=== PATIENT | male | born 1955 | race Caucasian/White ===

== ENCOUNTER 2016-06-25 12:19 | Emergency (ER) | payer MEDICARE, MEDICAID ==
[~2016-06-25 12:19] MED LIST: ATIVAN0.5 MG PO; AUGMENTIN 875-1 EACH PO; BACTRIM DS 8001 TAB PO; CEPHALEXIN500 M1 PO; CLONAZEPAM0.5 MG PO; NO HOME MEDICATIONS; NORCO 325 MG-51 TA1 PO; NORCO 325 MG-51 TAB PO; VIBRAMYCIN100 MG PO; ZOFRAN4 M1 PO
[2016-06-25] MEDS ORDERED: VIBRAMYCIN HYC100 MG PO (12:53)
[2016-06-25 13:04] VITALS: BP 145/88
== END 2016-06-25 13:00 | disposition home or self-care (01) ==
LOC: ED 12:19
DX: J02.9 Acute pharyngitis, unspecified (principal); R59.1 Generalized enlarged lymph nodes; R53.81 Other malaise; R53.83 Other fatigue; F15.21 Other stimulant dependence, in remission; F17.210 Nicotine dependence, cigarettes, uncomplicated

== ENCOUNTER 2017-03-19 13:47 | Emergency (ER) | payer MEDICARE, MEDICAID ==
[~2017-03-19] VITALS: Ht 180.3 cm; Wt 89.1 kg
[~2017-03-19 13:47] MED LIST changes: +VIBRAMYCIN HYC100 MG PO
[2017-03-19 13:52] VITALS: BP 131/85
[2017-03-19] MEDS ORDERED: DULCOLAX5 M1 PO (15:36)
[2017-03-19] MEDS ORDERED: COMBIVENT RESPI1 SPR IH (15:36)
[2017-03-19] MEDS ORDERED: MIRALAX 255 GM255 GM PO (15:36)
[2017-03-19] MEDS ORDERED: PREDNISONE20 M1 PO (15:36)
== END 2017-03-19 15:45 | disposition home or self-care (01) ==
LOC: ED 13:47
DX: J44.1 Chronic obstructive pulmonary disease with (acute) exacerbation (principal); K59.00 Constipation, unspecified
CPT/HCPCS: J7512

== ENCOUNTER 2018-06-11 15:09 | Emergency (ER) | payer MEDICARE, MEDICAID ==
[~2018-06-11] VITALS: Ht 182.9 cm; Wt 81.8 kg
[~2018-06-11 15:09] MED LIST changes: +COMBIVENT RESPI1 SPR IH; +DULCOLAX5 M1 PO; +MIRALAX 255 GM255 GM PO; +PREDNISONE20 M1 PO
[2018-06-11 15:13] VITALS: BP 148/87
[2018-06-11 16:10] LABS: HEMATOCRIT 41.2 % (42.0-52.0); MEAN CELL VOLUME 92 fl (78-100); MEAN CORPUSCULAR HEMOGLOBIN 29 pg (27-31); MEAN CORPUSCULAR HGB CONC 32 g/dL (33-37); PLATELET COUNT 222 K/mm3 (130-400); RED BLOOD COUNT 4.49 M/mm3 (4.20-5.60); RED CELL DISTRIBUTION WIDTH 13.1 % (11.5-14.5)
[2018-06-11 16:22] LABS: WHITE BLOOD COUNT 20.6 K/mm3 (4.8-10.8)
[2018-06-11 16:28] LABS: CALCIUM 8.6 mg/dL (8.4-10.2); POTASSIUM 4.2 mmol/L (3.6-5.0); TOTAL BILIRUBIN 0.4 mg/dL (0.2-1.3); TOTAL PROTEIN 6.9 g/dL (6.3-8.2)
[2018-06-11 16:32] LABS: URINE APPEARANCE CLEAR; URINE BILIRUBIN NEGATIVE (NEGATIVE); URINE BLOOD NEGATIVE (NEGATIVE); URINE COLOR YELLOW; URINE GLUCOSE NEGATIVE (NEGATIVE); URINE KETONE NEGATIVE (NEGATIVE); URINE LEUKOCYTE ESTERASE NEGATIVE (NEGATIVE); URINE NITRATE NEGATIVE (NEGATIVE); URINE PROTEIN(semi-quant) NEGATIVE (NEGATIVE); URINE UROBILINOGEN NORMAL (NORMAL); URINE WBC 0-1 /hpf (0-3)
[2018-06-11 16:57] LABS: LYMPHOCYTE 82 % (20-51); MONOCYTE 5 % (3-10); NEUTROPHILS 12 % (42-75)
[2018-06-11] MEDS ORDERED: TRAMADOL 50 MG TAB PO (17:18)
== END 2018-06-11 17:26 | disposition home or self-care (01) ==
LOC: ED 15:09
PROVIDERS: Family Medicine
DX: R33.9 Retention of urine, unspecified (principal); G89.29 Other chronic pain; K21.9 Gastro-esophageal reflux disease without esophagitis; Z98.890 Other specified postprocedural states; Z86.59 Personal history of other mental and behavioral disorders

== ENCOUNTER 2018-07-06 19:07 | Emergency (ER) | payer MEDICARE, MEDICAID ==
[~2018-07-06] VITALS: Ht 180.3 cm; Wt 79.5 kg
[~2018-07-06 19:07] MED LIST changes: +TRAMADOL 50 MG TAB PO
[2018-07-06 20:14] LABS: HEMATOCRIT 30.5 % (42.0-52.0); HEMOGLOBIN 9.5 g/dL (13.5-18.0); MEAN CELL VOLUME 92 fl (78-100); MEAN CORPUSCULAR HEMOGLOBIN 29 pg (27-31); MEAN CORPUSCULAR HGB CONC 31 g/dL (33-37); MEAN PLATELET VOLUME 9.2 fl (7.4-10.4); RED CELL DISTRIBUTION WIDTH 13.9 % (11.5-14.5)
[2018-07-06 20:20] LABS: PLATELET COUNT 549 K/mm3 (130-400); WHITE BLOOD COUNT 23.8 K/mm3 (4.8-10.8)
[2018-07-06 20:28] LABS: CALCIUM 7.7 mg/dL (8.4-10.2); POTASSIUM 3.8 mmol/L (3.6-5.0); TOTAL BILIRUBIN 0.3 mg/dL (0.2-1.3); TOTAL PROTEIN 6.6 g/dL (6.3-8.2)
[2018-07-06 20:40] LABS: NEUTROPHILS 29 % (42-75)
[2018-07-06 20:41] LABS: LYMPHOCYTE 66 % (20-51); MONOCYTE 5 % (3-10); OVALOCYTES 1+
[2018-07-06 21:15] LABS: URINE APPEARANCE CLEAR; URINE COLOR YELLOW
[2018-07-06 21:16] LABS: PH-URINE 5.5 (5.0 - 8.0); URINE BILIRUBIN NEGATIVE (NEGATIVE); URINE BLOOD NEGATIVE (NEGATIVE); URINE GLUCOSE NEGATIVE (NEGATIVE); URINE KETONE NEGATIVE (NEGATIVE); URINE LEUKOCYTE ESTERASE NEGATIVE (NEGATIVE); URINE NITRATE NEGATIVE (NEGATIVE); URINE PROTEIN(semi-quant) NEGATIVE (NEGATIVE); URINE UROBILINOGEN NORMAL (NORMAL); URINE WBC 0-1 /hpf (0-3)
[2018-07-06 21:49] VITALS: BP 144/87
[2018-07-06] MEDS ORDERED: FLOMAX0.4 MG PO (23:23)
== END 2018-07-06 21:49 | disposition other institution (70) ==
LOC: ED 19:07
PROVIDERS: Nurse Practitioner
DX: J18.9 Pneumonia, unspecified organism (principal); S02.92XA Unspecified fracture of facial bones, initial encounter for closed fracture; R33.9 Retention of urine, unspecified; K21.9 Gastro-esophageal reflux disease without esophagitis; K29.70 Gastritis, unspecified, without bleeding; F19.10 Other psychoactive substance abuse, uncomplicated; Z98.890 Other specified postprocedural states; W18.30XA Fall on same level, unspecified, initial encounter
CPT/HCPCS: J7030

== ENCOUNTER 2018-07-06 21:49 | Inpatient (IN) | payer MEDICARE, MEDICAID ==
[~2018-07-06] VITALS: Ht 180.3 cm; Wt 79.4 kg
[2018-07-06 22:45] VITALS: BP 144/87
[2018-07-06 22:46] VITALS: BP 144/87
[2018-07-06] MEDS ORDERED: FLOMAX0.4 MG PO (23:23)
[2018-07-07] VITALS (7 sets, daily range): BP systolic 81–123; BP diastolic 49–72
[2018-07-07 06:41] LABS: HEMOGLOBIN 9.5 g/dL (13.5-18.0); MEAN CELL VOLUME 92 fl (78-100); MEAN CORPUSCULAR HEMOGLOBIN 29 pg (27-31); MEAN CORPUSCULAR HGB CONC 32 g/dL (33-37); MEAN PLATELET VOLUME 9.3 fl (7.4-10.4); RED BLOOD COUNT 3.28 M/mm3 (4.20-5.60); RED CELL DISTRIBUTION WIDTH 13.8 % (11.5-14.5)
[2018-07-07 06:47] LABS: CALCIUM 7.7 mg/dL (8.4-10.2); POTASSIUM 4.4 mmol/L (3.6-5.0)
[2018-07-07 07:07] LABS: LYMPHOCYTE 58 % (20-51); NEUTROPHILS 42 % (42-75); PLATELET COUNT 563 K/mm3 (130-400); WHITE BLOOD COUNT 21.9 K/mm3 (4.8-10.8)
[2018-07-08 02:41] VITALS: BP 121/69
[2018-07-08 06:34] VITALS: BP 127/64
[2018-07-08 08:37] LABS: CALCIUM 7.8 mg/dL (8.4-10.2); POTASSIUM 3.9 mmol/L (3.6-5.0)
[2018-07-08 08:38] LABS: HEMATOCRIT 27.1 % (42.0-52.0); HEMOGLOBIN 8.3 g/dL (13.5-18.0); MEAN CELL VOLUME 93 fl (78-100); MEAN CORPUSCULAR HEMOGLOBIN 28 pg (27-31); MEAN CORPUSCULAR HGB CONC 31 g/dL (33-37); MEAN PLATELET VOLUME 9.5 fl (7.4-10.4); RED BLOOD COUNT 2.93 M/mm3 (4.20-5.60); RED CELL DISTRIBUTION WIDTH 14.2 % (11.5-14.5)
[2018-07-08 10:24] LABS: PLATELET COUNT 556 K/mm3 (130-400); WHITE BLOOD COUNT 22.5 K/mm3 (4.8-10.8)
[2018-07-08 10:25] LABS: LYMPHOCYTE 48 % (20-51); MONOCYTE 5 % (3-10); NEUTROPHILS 46 % (42-75)
[2018-07-08 11:36] VITALS: BP 135/77
[2018-07-08 14:32] VITALS: BP 149/76
[2018-07-08 15:23] LABS: URINE APPEARANCE CLEAR; URINE BILIRUBIN NEGATIVE (NEGATIVE); URINE BLOOD NEGATIVE (NEGATIVE); URINE COLOR YELLOW; URINE GLUCOSE NEGATIVE (NEGATIVE); URINE KETONE NEGATIVE (NEGATIVE); URINE LEUKOCYTE ESTERASE NEGATIVE (NEGATIVE); URINE NITRATE NEGATIVE (NEGATIVE); URINE PROTEIN(semi-quant) TRACE mg/dL (NEGATIVE); URINE UROBILINOGEN NORMAL (NORMAL)
[2018-07-08 19:15] VITALS: BP 129/75
[2018-07-08 23:11] VITALS: BP 121/69
[2018-07-09 03:13] VITALS: BP 147/88
[2018-07-09 06:34] VITALS: BP 157/88
[2018-07-09 08:15] LABS: HEMATOCRIT 26.8 % (42.0-52.0); HEMOGLOBIN 8.2 g/dL (13.5-18.0); MEAN CELL VOLUME 93 fl (78-100); MEAN CORPUSCULAR HEMOGLOBIN 29 pg (27-31); MEAN CORPUSCULAR HGB CONC 31 g/dL (33-37); MEAN PLATELET VOLUME 9.1 fl (7.4-10.4); RED BLOOD COUNT 2.87 M/mm3 (4.20-5.60); RED CELL DISTRIBUTION WIDTH 14.4 % (11.5-14.5); WHITE BLOOD COUNT 17.6 K/mm3 (4.8-10.8)
[2018-07-09 08:20] LABS: PLATELET COUNT 536 K/mm3 (130-400)
[2018-07-09 08:33] LABS: LYMPHOCYTE 72 % (20-51); MONOCYTE 3 % (3-10); NEUTROPHILS 25 % (42-75)
[2018-07-09 08:37] LABS: CALCIUM 7.5 mg/dL (8.4-10.2); POTASSIUM 4.5 mmol/L (3.6-5.0)
[2018-07-09 09:01] LABS: URINE APPEARANCE CLEAR; URINE BILIRUBIN NEGATIVE (NEGATIVE); URINE BLOOD NEGATIVE (NEGATIVE); URINE COLOR YELLOW; URINE GLUCOSE NEGATIVE (NEGATIVE); URINE KETONE NEGATIVE (NEGATIVE); URINE LEUKOCYTE ESTERASE NEGATIVE (NEGATIVE); URINE NITRATE NEGATIVE (NEGATIVE); URINE PROTEIN(semi-quant) NEGATIVE (NEGATIVE); URINE UROBILINOGEN NORMAL (NORMAL); URINE WBC 0-1 /hpf (0-3)
[2018-07-09 09:02] LABS: URINE MUCUS PRESENT (NOT PRESENT)
[2018-07-09 11:29] VITALS: BP 132/69
[2018-07-09 15:02] VITALS: BP 148/67
[2018-07-09 18:33] VITALS: BP 129/78
[2018-07-09 23:02] VITALS: BP 103/58
[2018-07-10 02:30] VITALS: BP 139/81
[2018-07-10 06:32] VITALS: BP 152/82
[2018-07-10 07:29] LABS: HEMATOCRIT 27.9 % (42.0-52.0); HEMOGLOBIN 8.5 g/dL (13.5-18.0); MEAN CELL VOLUME 93 fl (78-100); MEAN CORPUSCULAR HEMOGLOBIN 28 pg (27-31); MEAN CORPUSCULAR HGB CONC 31 g/dL (33-37); MEAN PLATELET VOLUME 9.3 fl (7.4-10.4); RED BLOOD COUNT 2.99 M/mm3 (4.20-5.60); RED CELL DISTRIBUTION WIDTH 14.3 % (11.5-14.5); WHITE BLOOD COUNT 17.2 K/mm3 (4.8-10.8)
[2018-07-10 07:42] LABS: CALCIUM 7.6 mg/dL (8.4-10.2); POTASSIUM 4.3 mmol/L (3.6-5.0)
[2018-07-10 08:04] LABS: PLATELET COUNT 566 K/mm3 (130-400)
[2018-07-10 08:27] LABS: LYMPHOCYTE 65 % (20-51); MONOCYTE 1 % (3-10); NEUTROPHILS 33 % (42-75)
[2018-07-10 10:45] VITALS: BP 131/74
[2018-07-10 15:03] VITALS: BP 142/76
[2018-07-10 18:22] VITALS: BP 157/84
[2018-07-10 23:42] VITALS: BP 156/85
[2018-07-11 03:14] VITALS: BP 137/78
[2018-07-11 06:10] LABS: HEMATOCRIT 28.1 % (42.0-52.0); HEMOGLOBIN 8.7 g/dL (13.5-18.0); MEAN CELL VOLUME 93 fl (78-100); MEAN CORPUSCULAR HEMOGLOBIN 29 pg (27-31); MEAN CORPUSCULAR HGB CONC 31 g/dL (33-37); MEAN PLATELET VOLUME 8.6 fl (7.4-10.4); RED BLOOD COUNT 3.03 M/mm3 (4.20-5.60); WHITE BLOOD COUNT 18.6 K/mm3 (4.8-10.8)
[2018-07-11 06:20] VITALS: BP 167/92
[2018-07-11 06:38] LABS: LYMPHOCYTE 80 % (20-51); MONOCYTE 4 % (3-10); NEUTROPHILS 16 % (42-75); PLATELET COUNT 581 K/mm3 (130-400)
[2018-07-11 06:47] LABS: ALBUMIN 2.4 g/dL (3.5-5.0); CALCIUM 7.5 mg/dL (8.4-10.2); POTASSIUM 4.2 mmol/L (3.6-5.0); TOTAL BILIRUBIN 0.3 mg/dL (0.2-1.3); TOTAL PROTEIN 5.2 g/dL (6.3-8.2)
[2018-07-11 11:10] VITALS: BP 129/68
[2018-07-11 15:00] VITALS: BP 146/90
[2018-07-11 18:56] VITALS: BP 151/83
[2018-07-11 23:20] VITALS: BP 159/89
[2018-07-12 02:57] VITALS: BP 142/78
[2018-07-12 06:09] LABS: HEMATOCRIT 28.2 % (42.0-52.0); HEMOGLOBIN 8.5 g/dL (13.5-18.0); MEAN CELL VOLUME 93 fl (78-100); MEAN CORPUSCULAR HEMOGLOBIN 28 pg (27-31); MEAN CORPUSCULAR HGB CONC 30 g/dL (33-37); MEAN PLATELET VOLUME 8.5 fl (7.4-10.4); RED BLOOD COUNT 3.02 M/mm3 (4.20-5.60); RED CELL DISTRIBUTION WIDTH 14.2 % (11.5-14.5); WHITE BLOOD COUNT 18.8 K/mm3 (4.8-10.8)
[2018-07-12 06:22] LABS: CALCIUM 7.9 mg/dL (8.4-10.2); POTASSIUM 4.2 mmol/L (3.6-5.0)
[2018-07-12 06:25] VITALS: BP 155/88
[2018-07-12 06:40] LABS: PLATELET COUNT 580 K/mm3 (130-400)
[2018-07-12 06:43] LABS: LYMPHOCYTE 71 % (20-51); MONOCYTE 1 % (3-10); NEUTROPHILS 28 % (42-75)
[2018-07-12 11:00] VITALS: BP 153/86
[2018-07-12 15:00] VITALS: BP 153/86
[2018-07-12 19:15] VITALS: BP 146/89
[2018-07-12 22:55] VITALS: BP 147/77
[2018-07-13 02:26] VITALS: BP 159/85
[2018-07-13 06:25] VITALS: BP 150/99
[2018-07-13 07:15] LABS: HEMATOCRIT 29.3 % (42.0-52.0); HEMOGLOBIN 8.9 g/dL (13.5-18.0); MEAN CELL VOLUME 93 fl (78-100); MEAN CORPUSCULAR HEMOGLOBIN 28 pg (27-31); MEAN CORPUSCULAR HGB CONC 30 g/dL (33-37); MEAN PLATELET VOLUME 9.1 fl (7.4-10.4); RED BLOOD COUNT 3.14 M/mm3 (4.20-5.60); RED CELL DISTRIBUTION WIDTH 14.6 % (11.5-14.5); WHITE BLOOD COUNT 19.3 K/mm3 (4.8-10.8)
[2018-07-13 07:16] LABS: PLATELET COUNT 597 K/mm3 (130-400)
[2018-07-13 07:43] LABS: BAND 1 % (0-10); LYMPHOCYTE 69 % (20-51); MONOCYTE 4 % (3-10); MYELOCYTE 1 % (0-0); NEUTROPHILS 23 % (42-75)
[2018-07-13 08:21] LABS: CALCIUM 8.8 mg/dL (8.4-10.2); POTASSIUM 4.4 mmol/L (3.6-5.0)
[2018-07-13 11:02] VITALS: BP 155/89
[2018-07-13 11:31] LABS: PH-URINE 6.5 (5.0 - 8.0); URINE APPEARANCE CLEAR; URINE BILIRUBIN NEGATIVE (NEGATIVE); URINE BLOOD NEGATIVE (NEGATIVE); URINE COLOR YELLOW; URINE GLUCOSE NEGATIVE (NEGATIVE); URINE KETONE NEGATIVE (NEGATIVE); URINE LEUKOCYTE ESTERASE NEGATIVE (NEGATIVE); URINE NITRATE NEGATIVE (NEGATIVE); URINE PROTEIN(semi-quant) TRACE mg/dL (NEGATIVE); URINE UROBILINOGEN NORMAL (NORMAL); URINE WBC 0-1 /hpf (0-3)
[2018-07-13 15:00] VITALS: BP 122/78
[2018-07-13 18:30] VITALS: BP 153/84
[2018-07-13 22:15] LABS: C-REACTIVE PROTEIN XXX
[2018-07-13 23:27] VITALS: BP 139/79
[2018-07-14 02:51] VITALS: BP 152/81
[2018-07-14 06:24] VITALS: BP 154/73
[2018-07-14 10:05] LABS: HEMATOCRIT 30.1 % (42.0-52.0); HEMOGLOBIN 9.1 g/dL (13.5-18.0); MEAN CELL VOLUME 93 fl (78-100); MEAN CORPUSCULAR HEMOGLOBIN 28 pg (27-31); MEAN CORPUSCULAR HGB CONC 30 g/dL (33-37); MEAN PLATELET VOLUME 8.8 fl (7.4-10.4); RED BLOOD COUNT 3.23 M/mm3 (4.20-5.60); RED CELL DISTRIBUTION WIDTH 14.9 % (11.5-14.5); WHITE BLOOD COUNT 19.6 K/mm3 (4.8-10.8)
[2018-07-14 10:13] LABS: CALCIUM 8.8 mg/dL (8.4-10.2); POTASSIUM 4.1 mmol/L (3.6-5.0); TOTAL BILIRUBIN 0.4 mg/dL (0.2-1.3); TOTAL PROTEIN 6.1 g/dL (6.3-8.2)
[2018-07-14 10:40] LABS: PLATELET COUNT 523 K/mm3 (130-400)
[2018-07-14 11:00] VITALS: BP 145/91
[2018-07-14 11:20] LABS: HYPOCHROMIA 1+; LYMPHOCYTE 68 % (20-51); MONOCYTE 6 % (3-10); NEUTROPHILS 25 % (42-75)
[2018-07-14 15:03] VITALS: BP 144/82
[2018-07-14 18:18] VITALS: BP 149/78
[2018-07-14 23:37] VITALS: BP 139/75
[2018-07-15 03:00] VITALS: BP 152/83
[2018-07-15 06:12] VITALS: BP 143/87
[2018-07-15 07:18] LABS: HEMOGLOBIN 9.3 g/dL (13.5-18.0); MEAN CELL VOLUME 94 fl (78-100); MEAN CORPUSCULAR HEMOGLOBIN 28 pg (27-31); MEAN CORPUSCULAR HGB CONC 30 g/dL (33-37); MEAN PLATELET VOLUME 8.9 fl (7.4-10.4); RED CELL DISTRIBUTION WIDTH 14.9 % (11.5-14.5); WHITE BLOOD COUNT 19.4 K/mm3 (4.8-10.8)
[2018-07-15 07:28] LABS: CALCIUM 8.6 mg/dL (8.4-10.2); PLATELET COUNT 509 K/mm3 (130-400); POTASSIUM 4.5 mmol/L (3.6-5.0)
[2018-07-15 07:48] LABS: LYMPHOCYTE 69 % (20-51); MONOCYTE 7 % (3-10); NEUTROPHILS 24 % (42-75)
[2018-07-15 11:02] VITALS: BP 152/83
[2018-07-15 14:56] VITALS: BP 123/74
[2018-07-15 19:17] VITALS: BP 129/64
[2018-07-15 23:04] VITALS: BP 137/77
[2018-07-16 03:30] VITALS: BP 129/77
[2018-07-16 06:38] VITALS: BP 124/73
[2018-07-16 09:30] LABS: HEMOGLOBIN 9.8 g/dL (13.5-18.0); MEAN CELL VOLUME 94 fl (78-100); MEAN CORPUSCULAR HEMOGLOBIN 29 pg (27-31); MEAN CORPUSCULAR HGB CONC 31 g/dL (33-37); MEAN PLATELET VOLUME 8.2 fl (7.4-10.4); PLATELET COUNT 439 K/mm3 (130-400); RED BLOOD COUNT 3.41 M/mm3 (4.20-5.60); RED CELL DISTRIBUTION WIDTH 14.8 % (11.5-14.5); WHITE BLOOD COUNT 17.9 K/mm3 (4.8-10.8)
[2018-07-16 10:01] LABS: LYMPHOCYTE 68 % (20-51); MONOCYTE 4 % (3-10); NEUTROPHILS 27 % (42-75)
[2018-07-16 11:00] VITALS: BP 109/61
[2018-07-16] MEDS ORDERED: LEVAQUIN 750MG750 M1 PO (12:53)
[2018-07-16] MEDS ORDERED: FLOMAX0.4 MG PO (12:53)
[2018-07-16 13:43] VITALS: BP 126/76
[2018-07-21 13:32] LABS: PROCALCITONIN 0.17 ng/mL (0.00-0.09)
== END 2018-07-16 13:51 | disposition home or self-care (01) | DRG 194 ==
LOC: MED/SURG 21:49
PROVIDERS: Family Medicine; Nurse Practitioner Family; Nurse Practitioner Primary Care; Physician Assistant; ADMIT Nurse Practitioner
DX: J13 Pneumonia due to Streptococcus pneumoniae (principal); S02.81XA Fracture of other specified skull and facial bones, right side, initial encounter for closed fracture; S02.19XA Other fracture of base of skull, initial encounter for closed fracture; S02.40EA Zygomatic fracture, right side, initial encounter for closed fracture; J90 Pleural effusion, not elsewhere classified; C85.10 Unspecified B-cell lymphoma, unspecified site; N13.2 Hydronephrosis with renal and ureteral calculous obstruction; R33.9 Retention of urine, unspecified; K21.9 Gastro-esophageal reflux disease without esophagitis; Z87.891 Personal history of nicotine dependence; W18.30XA Fall on same level, unspecified, initial encounter; F15.10 Other stimulant abuse, uncomplicated
CPT/HCPCS: A4216; C9113; J0456; J0692; J0696; J1650; J1885; J1956; J2405; J2930; J3490; J7030; J7050; Q9967

== ENCOUNTER 2019-05-24 17:17 | Emergency (ER) | payer MEDICARE, MEDICAID ==
[~2019-05-24 17:17] MED LIST changes: +FLOMAX0.4 MG PO; +LEVAQUIN 750MG750 M1 PO
[2019-05-24 18:05] LABS: HEMATOCRIT 29.7 % (42.0-52.0); HEMOGLOBIN 9.1 g/dL (13.5-18.0); MEAN CELL VOLUME 90 fl (78-100); MEAN CORPUSCULAR HEMOGLOBIN 28 pg (27-31); MEAN CORPUSCULAR HGB CONC 31 g/dL (33-37); MEAN PLATELET VOLUME 9.7 fl (7.4-10.4); PLATELET COUNT 263 K/mm3 (130-400); RED BLOOD COUNT 3.29 M/mm3 (4.20-5.60); RED CELL DISTRIBUTION WIDTH 12.9 % (11.5-14.5); WHITE BLOOD COUNT 10.3 K/mm3 (4.8-10.8)
[2019-05-24 18:13] LABS: POTASSIUM 4.5 mmol/L (3.5-5.1)
[2019-05-24 18:14] LABS: CALCIUM 7.5 mg/dL (8.3-10.5)
[2019-05-24 18:34] LABS: LYMPHOCYTE 61 % (20-51); MONOCYTE 5 % (3-10); NEUTROPHILS 31 % (42-75); NUCLEATED RED BLOOD CELL 1 (0-6)
[2019-05-24 19:00] VITALS: BP 141/93
== END 2019-05-24 19:00 | disposition other institution (70) ==
LOC: ED 17:17
PROVIDERS: Nurse Practitioner Family
DX: J20.9 Acute bronchitis, unspecified (principal); J42 Unspecified chronic bronchitis; N17.9 Acute kidney failure, unspecified; D64.9 Anemia, unspecified; E86.0 Dehydration; K21.9 Gastro-esophageal reflux disease without esophagitis; F17.210 Nicotine dependence, cigarettes, uncomplicated; Z85.79 Personal history of other malignant neoplasms of lymphoid, hematopoietic and related tissues
CPT/HCPCS: J7040

== ENCOUNTER 2019-09-23 15:06 | Emergency (ER) | payer MEDICARE, MEDICAID ==
[~2019-09-23] VITALS: Wt 76.4 kg
[2019-09-23 16:06] LABS: HEMATOCRIT 31.8 % (42.0-52.0); MEAN CELL VOLUME 87 fl (78-100); MEAN CORPUSCULAR HEMOGLOBIN 28 pg (27-31); MEAN CORPUSCULAR HGB CONC 31 g/dL (33-37); MEAN PLATELET VOLUME 9.4 fl (7.4-10.4); PLATELET COUNT 303 K/mm3 (130-400); RED BLOOD COUNT 3.64 M/mm3 (4.20-5.60); RED CELL DISTRIBUTION WIDTH 13.8 % (11.5-14.5); WHITE BLOOD COUNT 13.8 K/mm3 (4.8-10.8)
[2019-09-23 16:14] LABS: ALBUMIN 3.5 g/dL (3.4-4.8)
[2019-09-23 16:15] LABS: POTASSIUM 4.5 mmol/L (3.5-5.1)
[2019-09-23 16:16] LABS: CALCIUM 7.9 mg/dL (8.3-10.5)
[2019-09-23 16:17] LABS: TOTAL PROTEIN 6.6 g/dL (6.2-8.1)
[2019-09-23 16:19] LABS: TOTAL BILIRUBIN 0.3 mg/dL (0.2-1.2)
[2019-09-23 16:31] LABS: MONOCYTE 3 % (3-10); NEUTROPHILS 36 % (42-75)
[2019-09-23 16:34] LABS: LYMPHOCYTE 60 % (20-51)
[2019-09-23 18:05] LABS: MAGNESIUM 1.93 mg/dL (1.60-2.60)
[2019-09-23 19:33] VITALS: BP 145/50
== END 2019-09-23 19:34 | disposition home or self-care (01) ==
LOC: ED 15:06
PROVIDERS: Family Medicine
DX: I12.0 Hypertensive chronic kidney disease with stage 5 chronic kidney disease or end stage renal disease (principal); N18.6 End stage renal disease; I42.9 Cardiomyopathy, unspecified; F19.10 Other psychoactive substance abuse, uncomplicated; Z87.891 Personal history of nicotine dependence; Z95.0 Presence of cardiac pacemaker

== ENCOUNTER 2020-07-05 19:41 | Emergency (ER) | payer MEDICARE, MEDICAID ==
[2020-07-05] MEDS ORDERED: FLOMAX0.4 MG PO (19:52)
[2020-07-05 20:41] LABS: HEMATOCRIT 30.6 % (42.0-52.0); HEMOGLOBIN 9.3 g/dL (13.5-18.0); MEAN CELL VOLUME 90 fl (78-100); MEAN CORPUSCULAR HEMOGLOBIN 27 pg (27-31); MEAN CORPUSCULAR HGB CONC 30 g/dL (33-37); MEAN PLATELET VOLUME 8.5 fl (7.4-10.4); PLATELET COUNT 398 K/mm3 (130-400); RED CELL DISTRIBUTION WIDTH 14.2 % (11.5-14.5)
[2020-07-05 20:50] LABS: POTASSIUM 5.2 mmol/L (3.5-5.1)
[2020-07-05 20:51] LABS: CALCIUM 7.8 mg/dL (8.3-10.5)
[2020-07-05 20:52] LABS: PH-URINE 5.5 (5.0 - 8.0); URINE APPEARANCE CLOUDY; URINE BILIRUBIN NEGATIVE (NEGATIVE); URINE BLOOD TRACE (NEGATIVE); URINE COLOR YELLOW; URINE GLUCOSE NEGATIVE (NEGATIVE); URINE KETONE NEGATIVE (NEGATIVE); URINE NITRATE NEGATIVE (NEGATIVE); URINE PROTEIN(semi-quant) TRACE mg/dL (NEGATIVE); URINE UROBILINOGEN NORMAL (NORMAL)
[2020-07-05 20:52] LABS: TOTAL PROTEIN 6.5 g/dL (6.2-8.1)
[2020-07-05 20:53] LABS: URINE LEUKOCYTE ESTERASE 2+ (NEGATIVE); URINE WBC >50 /hpf (0-3)
[2020-07-05 20:54] LABS: TOTAL BILIRUBIN 0.3 mg/dL (0.2-1.2)
[2020-07-05 21:18] LABS: WHITE BLOOD COUNT 27.6 K/mm3 (4.8-10.8)
[2020-07-05 21:23] LABS: NEUTROPHILS 25 % (42-75)
[2020-07-05 21:24] LABS: LYMPHOCYTE 71 % (20-51); MONOCYTE 3 % (3-10)
[2020-07-05 23:49] VITALS: BP 110/76
== END 2020-07-05 23:51 | disposition short-term general hospital (02) ==
LOC: ED 19:41
PROVIDERS: Family Medicine
DX: N12 Tubulo-interstitial nephritis, not specified as acute or chronic (principal); N31.9 Neuromuscular dysfunction of bladder, unspecified; N18.4 Chronic kidney disease, stage 4 (severe); I50.20 Unspecified systolic (congestive) heart failure; F17.210 Nicotine dependence, cigarettes, uncomplicated; Z95.0 Presence of cardiac pacemaker
CPT/HCPCS: J2270; J7030

== ENCOUNTER 2020-08-05 21:57 | Emergency (ER) | payer MEDICARE, MEDICAID ==
[2020-08-05 23:20] LABS: HEMATOCRIT 29.6 % (42.0-52.0); HEMOGLOBIN 9.1 g/dL (13.5-18.0); MEAN CELL VOLUME 89 fl (78-100); MEAN CORPUSCULAR HEMOGLOBIN 27 pg (27-31); MEAN CORPUSCULAR HGB CONC 31 g/dL (33-37); MEAN PLATELET VOLUME 9.5 fl (7.4-10.4); PLATELET COUNT 164 K/mm3 (130-400); RED BLOOD COUNT 3.32 M/mm3 (4.20-5.60); RED CELL DISTRIBUTION WIDTH 15.4 % (11.5-14.5)
[2020-08-05 23:26] LABS: ALBUMIN 3.7 g/dL (3.4-4.8)
[2020-08-05 23:28] LABS: CALCIUM 7.5 mg/dL (8.3-10.5)
[2020-08-05 23:29] LABS: TOTAL PROTEIN 6.9 g/dL (6.2-8.1)
[2020-08-05 23:31] LABS: TOTAL BILIRUBIN 0.4 mg/dL (0.2-1.2)
[2020-08-05 23:32] LABS: WHITE BLOOD COUNT 24.7 K/mm3 (4.8-10.8)
[2020-08-05 23:33] LABS: LYMPHOCYTE 67 % (20-51); MONOCYTE 3 % (3-10); NEUTROPHILS 27 % (42-75); OVALOCYTES 1+
[2020-08-06 00:16] LABS: PH-URINE 6.5 (5.0 - 8.0); URINE APPEARANCE CLOUDY; URINE BILIRUBIN NEGATIVE (NEGATIVE); URINE BLOOD 50 ery/uL (NEGATIVE); URINE COLOR YELLOW; URINE GLUCOSE NEGATIVE (NEGATIVE); URINE KETONE NEGATIVE (NEGATIVE); URINE LEUKOCYTE ESTERASE 2+ (NEGATIVE); URINE NITRATE NEGATIVE (NEGATIVE); URINE PROTEIN(semi-quant) 1+ mg/dL (NEGATIVE); URINE UROBILINOGEN NORMAL (NORMAL); URINE WBC >50 /hpf (0-3)
[2020-08-06 03:14] VITALS: BP 131/77
== END 2020-08-06 03:14 | disposition short-term general hospital (02) ==
LOC: ED 21:57
PROVIDERS: Nurse Practitioner Family
DX: R10.84 Generalized abdominal pain (principal); E87.5 Hyperkalemia; R30.0 Dysuria; N13.30 Unspecified hydronephrosis; N31.9 Neuromuscular dysfunction of bladder, unspecified; N12 Tubulo-interstitial nephritis, not specified as acute or chronic; J96.00 Acute respiratory failure, unspecified whether with hypoxia or hypercapnia; I50.9 Heart failure, unspecified; N18.30 Chronic kidney disease, stage 3 unspecified; F17.210 Nicotine dependence, cigarettes, uncomplicated; Z95.0 Presence of cardiac pacemaker
CPT/HCPCS: J1815; J1885; J2185; J2405; J3370; J7030; J7050

== ENCOUNTER 2021-03-30 15:48 | Emergency (ER) | payer MEDICARE, MEDICAID ==
[~2021-03-30] VITALS: Wt 86.7 kg
[2021-03-30] MEDS ORDERED: CARVEDILOL3.125 MG PO (15:58)
[2021-03-30] MEDS ORDERED: CEFUROXIME AXE500 MG PO (15:58)
[2021-03-30] MEDS ORDERED: BUMEX 1MG TA1 MG/TA1 PO (15:58)
[2021-03-30] MEDS ORDERED: CALCIUM ACETAT667 MG PO (15:58)
[2021-03-30] MEDS ORDERED: METOPROLOL SUCC50 M1 PO (15:58)
[2021-03-30 16:32] VITALS: BP 148/99
== END 2021-03-30 16:33 | disposition home or self-care (01) ==
LOC: ED 15:48
DX: Z46.6 Encounter for fitting and adjustment of urinary device (principal); N18.9 Chronic kidney disease, unspecified; I50.9 Heart failure, unspecified; F17.200 Nicotine dependence, unspecified, uncomplicated; Z99.2 Dependence on renal dialysis

== ENCOUNTER 2021-05-23 20:50 | Emergency (ER) | payer MEDICARE, MEDICAID ==
[~2021-05-23] VITALS: Wt 86.7 kg
[~2021-05-23 20:50] MED LIST changes: +BUMEX 1MG TA1 MG/TA1 PO; +CALCIUM ACETAT667 MG PO; +CARVEDILOL3.125 MG PO; +CEFUROXIME AXE500 MG PO; +METOPROLOL SUCC50 M1 PO
[2021-05-23 22:08] LABS: HEMATOCRIT 34.8 % (42.0-52.0); MEAN CELL VOLUME 94 fl (78-100); MEAN CORPUSCULAR HEMOGLOBIN 30 pg (27-31); MEAN CORPUSCULAR HGB CONC 32 g/dL (33-37); MEAN PLATELET VOLUME 9.3 fl (7.4-10.4); PLATELET COUNT 199 K/mm3 (130-400); POTASSIUM 4.6 mmol/L (3.5-5.1); RED CELL DISTRIBUTION WIDTH 13.6 % (11.5-14.5); SODIUM 142 mmol/L (136-145)
[2021-05-23 22:09] LABS: CALCIUM 8.1 mg/dL (8.3-10.5)
[2021-05-23 22:10] LABS: GLUCOSE 92 mg/dL (75-110); TOTAL PROTEIN 7.6 g/dL (6.2-8.1)
[2021-05-23 22:11] LABS: CARBON DIOXIDE 25 mmol/L (23-31)
[2021-05-23 22:12] LABS: TOTAL BILIRUBIN 0.5 mg/dL (0.2-1.2)
[2021-05-23 22:15] LABS: AST-SGOT 29 U/L (5-34)
[2021-05-23 22:17] LABS: ALT/SGPT 48 U/L (0-55)
[2021-05-23 22:26] LABS: WHITE BLOOD COUNT 20.8 K/mm3 (4.8-10.8)
[2021-05-23 22:28] LABS: LYMPHOCYTE 77 % (20-51); MONOCYTE 7 % (3-10); NEUTROPHILS 14 % (42-75)
[2021-05-23 22:31] LABS: TROPONIN-I < 0.030 ng/mL (<0.030)
[2021-05-23 23:04] LABS: PH-URINE 8.5 (5.0 - 8.0); URINE APPEARANCE CLOUDY; URINE BILIRUBIN NEGATIVE (NEGATIVE); URINE BLOOD 50 ery/uL (NEGATIVE); URINE COLOR YELLOW; URINE GLUCOSE NEGATIVE (NEGATIVE); URINE KETONE NEGATIVE (NEGATIVE); URINE LEUKOCYTE ESTERASE 2+ (NEGATIVE); URINE NITRATE POSITIVE (NEGATIVE); URINE PROTEIN(semi-quant) 1+ (NEGATIVE); URINE UROBILINOGEN NORMAL (NORMAL)
[2021-05-23 23:15] LABS: URINE MUCUS PRESENT (NOT PRESENT); URINE WBC >50 /hpf (0-3)
[2021-05-23] MEDS ORDERED: CEPHALEXIN500 M1 PO (23:38)
[2021-05-24 00:38] VITALS: BP 130/86
== END 2021-05-24 00:42 | disposition home or self-care (01) ==
LOC: ED 20:50
PROVIDERS: Family Medicine
DX: R07.9 Chest pain, unspecified (principal); N18.6 End stage renal disease; I50.9 Heart failure, unspecified; Z99.2 Dependence on renal dialysis; Z95.0 Presence of cardiac pacemaker; Z87.891 Personal history of nicotine dependence
CPT/HCPCS: J0696